=== PATIENT | male | born 1990 | race Caucasian/White ===

== ENCOUNTER 2020-06-11 09:37 | Emergency (ER) | payer OTHER, SELFPAY ==
--- NOTE | ~2020-06-11 | CT_ITS ---
EXAMINATION: CT ABDOMEN AND PELVIS WITH CONTRAST CLINICAL INFORMATION: Periumbilical pain COMPARISON: Previous CT of the abdomen and pelvis January 2013 TECHNIQUE: Multidetector volumetric images were obtained from the superior aspect of the liver through the pubic symphysis following administration 85 mL of Omnipaque 350 intravenous contrast. Sagittal and coronal reformatted images were obtained on the technologist's workstation. Oral contrast: Yes This CT examination was performed using dose optimization techniques as appropriate, variously including the following: *Automated exposure control *Adjustment of mA and/or kV according to patient size (this includes techniques or standardized protocols for targeted exams where dose is matched to indication/reason for exam; i.e. extremities or head) *Use of iterative reconstruction technique DLP: 997 mGy-cm FINDINGS: LUNG BASES: The visualized lung bases are unremarkable. LIVER, GALLBLADDER, AND BILIARY TREE: The liver is normal in size, shape, and attenuation. No focal hepatic lesion or biliary ductal dilatation is present. The gallbladder is unremarkable with no evidence of radiopaque gallstones, gallbladder wall thickening, or obvious pericholecystic inflammatory changes. PANCREAS: Unremarkable. SPLEEN: Unremarkable. ADRENAL GLANDS: Unremarkable. KIDNEYS AND URETERS: The kidneys are normal in size, shape, and attenuation. No hydronephrosis, hydroureter, or calculi seen. No perinephric stranding. BLADDER: Unremarkable. GASTROINTESTINAL TRACT: There is mild diverticulosis of the colon. No evidence of diverticulitis is seen. There is a linear high attenuation density in the sigmoid colon measuring approximately 1 x 10 mm axial image 73 series 3. This may represent something the patient has ingested or surgical clip. Clinical correlation is recommended. The small and large bowel are otherwise unremarkable. The appendix is unremarkable. The stomach is unremarkable. No ascites or free air is seen. ABDOMINAL WALL: There is a small umbilical hernia containing fat. LYMPH NODES: Normal. VASCULAR: Unremarkable. PELVIC VISCERA: Unremarkable. OSSEOUS STRUCTURES: Unremarkable. CT/CT abdomen pelvis w con IMPRESSION: Normal-appearing appendix. 1 x 10 mm high attenuation density in the sigmoid colon, question representing something the patient has recently ingested or surgical clip. Clinical correlation recommended. Small umbilical hernia containing fat.
[2020-06-11 11:15] VITALS: BP 159/94; PULSE 88; RESP 18; TEMP 36.5; O2SAT 97; BMI 35.2
[2020-06-11 11:50] LABS: MANUAL DIFF FLAG NO
[2020-06-11 11:53] LABS: Basophils Absolute Auto 0.1 X10*3/uL (0.0-0.2); Basophils Percent Auto 0.6 % (0-2); Eosinophils Absolute Auto 0.2 X10*3/uL (0.0-0.4); Eosinophils Percent Auto 1.9 % (0-4); Hemoglobin 17.6 g/dl (14.0-18.0); Imm Gran Abs Auto 0.04 X10*3/uL (0.00-0.03); Imm Gran Pct Auto 0.5 % (0.0-0.4); Lymphocytes Absolute Auto 2.8 X10*3/uL (1.2-4.9); Mean Corpuscular HGB Conc 34.5 g/dl (31.0-36.0); Mean Platelet Volume 10.4 fL (9.4-12.4); Monocytes Absolute Auto 0.7 X10*3/uL (0.1-1.2); Monocytes Percent Auto 7.7 % (2-11); Neutrophils Absolute Auto 4.7 X10*3/uL (2.0-8.3); Neutrophils Percent Auto 56.3 % (45-73); Platelet Count 254 X10*3/uL (160-400); Red Blood Count 5.86 X10*6/uL (4.60-5.80); Red Cell Distribution Width 12.9 % (11.0-16.0); White Blood Count 8.4 X10*3/uL (4.8-10.8)
[2020-06-11 11:57] LABS: Glucose Urine UA NEG (NEG); Leukocyte Esterase Urine NEG (NEG); Nitrite Urine NEG (NEG); Specific Gravity - Urine >= 1.030 (1.005-1.025); Urine Blood NEG (NEG); Urine Ketones NEG (NEG); Urine Protein NEG (NEG-TRACE)
[2020-06-11 11:58] LABS: Appearance Urine CLEAR; Color Urine YELLOW
[2020-06-11 12:20] LABS: Anion Gap 11 (12-20); Blood Urea Nitrogen 11 mg/dL (9-16); Calcium 9.1 mg/dL (8.4-10.2); Carbon Dioxide 24 mmol/L (22-29); Chloride 108 mmol/L (96-108); Creatinine Clr Calc Pharmacy 150.1; Estimated Glomerular Filt Rate > 60; Glucose Random 89 mg/dL (60-115); Sodium 139 mmol/L (135-145)
[2020-06-11 12:21] LABS: Alanine Aminotransferase 42 U/L (0-40); Albumin Level 4.6 g/dL (3.5-5.0); Alkaline Phosphatase 95 U/L (39-117); Aspartate Amino Transferase 20 U/L (5-37); Bilirubin Direct 0.2 mg/dL (0.0-0.5); Bilirubin Total 0.7 mg/dL (0.0-1.0); Lipase 32 U/L (8-78); Magnesium 2.2 mg/dL (1.6-2.6); Total Protein 6.8 g/dL (6.5-8.0)
--- NOTE | 2020-06-11 14:15 | PC.NURSE ---
patient a&ox3, c/o 10/07 umbilicus pain, vitals stable, iv inserted, awaiting ct scan, will continue to monitor
[2020-06-11 14:25] VITALS: BP 148/84; PULSE 88; RESP 18; TEMP 36.5; O2SAT 95
--- NOTE | 2020-06-11 14:26 | PC.NURSE ---
patient a&ox3, vss, 8 umbilicus pain, pt awaiting ed provider, will continue to monitor.
--- NOTE | 2020-06-11 14:30 | PC.NURSE ---
pt to ct scan
--- NOTE | 2020-06-11 14:36 | ED_ITS ---
HPI - Abdominal Pain General Chief Complaint: Abdominal Pain Stated Complaint: ABD PAIN Time Seen by Provider: 06/11/20 11:23 Source: patient Mode of arrival: ambulatory Limitations: no limitations History of Present Illness HPI narrative: 29-year-old male with history of asthma otherwise denies any past medical or surgical history he presents today with complaint of periumbilical abdominal pain states he has a hernia there and has been more painful over the past several days. Denies any nausea vomiting. No diarrhea. No recent illness. No rash to the abdomen. MD elicited complaint: abdominal pain Onset (ago): day(s) Pain Consistency: constant Location: periumbilical Severity: mild Quality: aching Exacerbating factors: other (States when he bears down or coughs pain become slightly more) Relieving factors: nothing Associated symptoms: denies other symptoms Related Data Previous Rx's Medication Instructions Recorded albuterol sulfate [ProAir HFA] 2 puff INHALATION Q4-6H PRN #8.5 g 06/11/20 Allergies Allergy/AdvReac Type Severity Reaction Status Date / Time doxycycline [DOXYCYCLINE] Allergy Unknown RASH, hives Unverified 11/15/19 16:37 penicillin G Allergy Unknown hives Verified 06/14/19 00:00 Penicillins [PENICILLINS] Allergy Unknown UNK Unverified 11/15/19 16:37 Review of Systems Review of Systems Constitutional: No Weight loss, No Fever, No Chills, No Night Sweats, No Fatigue, No Malaise ENT/Mouth: No Hearing loss, No Ear Pain, No Nasal Congestion, No Sinus Pain, No Hoarseness, No sore throat, No Rhinorrhea, No Swallowing Difficulty Eyes: No Eye Pain, No Swelling, No Redness, No Foreign Body, No Discharge, No Vision Changes Cardiovascular: No Chest Pain, No SOB, No Dyspnea on Exertion, No Orthopnea, No Edema, No Palpitations Respiratory: No Cough, No Sputum, No Wheezing, No Smoke Exposure, No Dyspnea Gastrointestinal: No Nausea, No Vomiting, No Diarrhea, No Constipation, + abdominal Pain, No Hematochezia, No Melena Genitourinary: No Dysuria, No Urinary Frequency, No Hematuria, No Urinary Incontinence, No Urgency, No Flank Pain, No Urinary Flow Changes, No Hesitancy Musculoskeletal: No joint pain, No Myalgias, No Joint Swelling Skin: No Skin Lesions, No rash Neuro: No Weakness, No Numbness, No Paresthesias, No Loss of Consciousness, No Dizziness, No Headache Psych: No Social Issues Heme/Lymph: No Bruising, No Bleeding,No Lymphadenopathy Endocrine: No Polyuria, No Polydipsia, No Temperature Intolerance Yes all other systems are reviewed and are negative Physical Exam Vital Signs: Vital Signs: Last Vital Signs Temp 97.7 F 06/11/20 14:25 Pulse 88 06/11/20 14:25 Resp 18 06/11/20 14:25 BP 148/84 H 06/11/20 14:25 Pulse Ox 95 06/11/20 14:25 Body Mass Index 35.2 Reviewed Const: General: cooperative and healthy appearing; No acute distress or intoxicated appearing Nutritional Appearance: average body habitus Orientation/consciousness: patient oriented x3 HENMT: Head: Yes normal to inspection Ears: hearing grossly normal bilaterally Eyes: General: appearance normal, both eyes and all related structures Visual Araiza: normal visual araiza by confrontation Neck: Neck: Yes normal visual inspection, No positive Brudzinski's sign, No positive Kernig's sign and No tender Thyroid: Thyroid normal Chest: Chest palpation & inspection: normal inspection of the chest Resp: Effort & Inspection: normal respiratory effort Auscultation: clear to auscultation bilaterally Cardio: Jugular venous distension: no JVD Rhythm: regular rhythm Heart sounds: S1 normal heart sound present and S2 normal heart sound present GI: Inspection: Yes normal to inspection Palpation (GI): Soft to palpation and Hernia present umbilical (Penis size periumbilical hernia that is fat containing and easy to reduce. He has diffuse tenderness over this area. No redness. No rebound.) Percussion: Yes normal to percussion Auscultation: normal bowel sounds : General: Yes no CVA tenderness Back/Spine/Pelvis: Back: no CVA tenderness Skin: General skin exam: no rashes or lesions noted Neuro: General: patient oriented x3 Extrem: General: Yes normal to inspection Course Reevaluation(s) Reevaluation #1: abdominal pelvis CT with IV contrast showing small periumbilical fat containing hernia easy to reduce on exam. Also incidental 1 x 10 mm highly attenuated density in sigmoid colon question represents something patient recently ingested or surgical clip aside from pilonidal cyst he has not had any abdominal surgeries or denies ingesting anything question food. He has no other complaints. He will follow-up with general surgery. Additionally he also states if I could send him a prescription of his inhaler for refill but he has no asthma related complaints at this time. Will go ahead and send a refill he will follow with General surgery and primary care. MDM - Abdominal Pain Lab Data Result diagrams: 06/11/20 11:44 06/11/20 11:44 Labs: Lab Results 06/11/20 06/11/20 06/11/20 Range/Units 11:44 11:44 11:44 WBC 8.4 (4.8-10.8) X10*3/uL RBC 5.86 H (4.60-5.80) X10*6/uL Hgb 17.6 (14.0-18.0) g/dl Hct 51.0 (42-52) % MCV 87.0 (80-98) fL MCH 30.0 (27.0-33.0) pg MCHC 34.5 (31.0-36.0) g/dl RDW 12.9 (11.0-16.0) % Plt Count 254 (160-400) X10*3/uL MPV 10.4 (9.4-12.4) fL Immature Gran % (Auto) 0.5 H (0.0-0.4) % Neut % (Auto) 56.3 (45-73) % Lymph % (Auto) 33.0 (20-40) % [place] % (Auto) 7.7 (2-11) % Eos % (Auto) 1.9 (0-4) % Baso % (Auto) 0.6 (0-2) % Lymph # (Auto) 2.8 (1.2-4.9) X10*3/uL [place] # (Auto) 0.7 (0.1-1.2) X10*3/uL Eos # (Auto) 0.2 (0.0-0.4) X10*3/uL Baso # (Auto) 0.1 (0.0-0.2) X10*3/uL Abs Immat Gran (auto) 0.04 H (0.00-0.03) X10*3/uL Absolute Neuts (auto) 4.7 (2.0-8.3) X10*3/uL Absolute Nucleated RBC 0.000 (0.0-0.012) X10*3/uL Nucleated RBC % (auto) 0.0 (0.0-0.2) /100WBC Hold Blue Top Sodium 139 (135-145) mmol/L Potassium 4.0 (3.3-5.1) mmol/L Chloride 108 (96-108) mmol/L Carbon Dioxide 24 (22-29) mmol/L Anion Gap 11 L (12-20) BUN 11 (9-16) mg/dL Creatinine 0.98 (0.5-1.4) mg/dL Estim Creat Clear Calc 150.1 Estimated GFR > 60 Random Glucose 89 (60-115) mg/dL Calcium 9.1 (8.4-10.2) mg/dL Magnesium (1.6-2.6) mg/dL Total Bilirubin (0.0-1.0) mg/dL Direct Bilirubin (0.0-0.5) mg/dL AST (5-37) U/L ALT (0-40) U/L Alkaline Phosphatase (39-117) U/L Total Protein (6.5-8.0) g/dL Albumin (3.5-5.0) g/dL Lipase (8-78) U/L Urine Color YELLOW Urine Appearance CLEAR Urine pH 6.0 (5.0-8.0) Ur Specific [place] >= 1.030 H (1.005-1.025) Urine Protein NEG (NEG-TRACE) MG/DL Urine Glucose (UA) NEG (NEG) MG/DL Urine Ketones NEG (NEG) MG/DL Urine Blood NEG (NEG) Urine Nitrite NEG (NEG) Ur Leukocyte Esterase NEG (NEG) 06/11/20 06/11/20 Range/Units 11:44 11:44 WBC (4.8-10.8) X10*3/uL RBC (4.60-5.80) X10*6/uL Hgb (14.0-18.0) g/dl Hct (42-52) % MCV (80-98) fL MCH (27.0-33.0) pg MCHC (31.0-36.0) g/dl RDW (11.0-16.0) % Plt Count (160-400) X10*3/uL MPV (9.4-12.4) fL Immature Gran % (Auto) (0.0-0.4) % Neut % (Auto) (45-73) % Lymph % (Auto) (20-40) % [place] % (Auto) (2-11) % Eos % (Auto) (0-4) % Baso % (Auto) (0-2) % Lymph # (Auto) (1.2-4.9) X10*3/uL [place] # (Auto) (0.1-1.2) X10*3/uL Eos # (Auto) (0.0-0.4) X10*3/uL Baso # (Auto) (0.0-0.2) X10*3/uL Abs Immat Gran (auto) (0.00-0.03) X10*3/uL Absolute Neuts (auto) (2.0-8.3) X10*3/uL Absolute Nucleated RBC (0.0-0.012) X10*3/uL Nucleated RBC % (auto) (0.0-0.2) /100WBC Hold Blue Top SEE NOTE Sodium (135-145) mmol/L Potassium (3.3-5.1) mmol/L Chloride (96-108) mmol/L Carbon Dioxide (22-29) mmol/L Anion Gap (12-20) BUN (9-16) mg/dL Creatinine (0.5-1.4) mg/dL Estim Creat Clear Calc Estimated GFR Random Glucose (60-115) mg/dL Calcium (8.4-10.2) mg/dL Magnesium 2.2 (1.6-2.6) mg/dL Total Bilirubin 0.7 (0.0-1.0) mg/dL Direct Bilirubin 0.2 (0.0-0.5) mg/dL AST 20 (5-37) U/L ALT 42 H (0-40) U/L Alkaline Phosphatase 95 (39-117) U/L Total Protein 6.8 (6.5-8.0) g/dL Albumin 4.6 (3.5-5.0) g/dL Lipase 32 (8-78) U/L Urine Color Urine Appearance Urine pH (5.0-8.0) Ur Specific [place] (1.005-1.025) Urine Protein (NEG-TRACE) MG/DL Urine Glucose (UA) (NEG) MG/DL Urine Ketones (NEG) MG/DL Urine Blood (NEG) Urine Nitrite (NEG) Ur Leukocyte Esterase (NEG) Imaging Data Abdominal/pelvis CT with IV contrast: Radiologist's impression: [address] [id number] Scan ReportSigned Patient: Víctor JusticeMR#: [id number]: [id number]:[id number]/Sex: 29 / MADM Date: 06/11/20Loc: EDAttlisa Dr: Ordering Physician: Josue Zuñiga NP Date of Service: 06/11/20 Procedure(s): CT abdomen pelvis w con Accession Number(s): [id number] cc: Josue Zuñiga NP~ EXAMINATION: CT ABDOMEN AND PELVIS WITH CONTRAST CLINICAL INFORMATION: Periumbilical pain COMPARISON: Previous CT of the abdomen and pelvis January 2013 TECHNIQUE: Multidetector volumetric images were obtained from the superior aspect of the liver through the pubic symphysis following administration 85 mL of Omnipaque 350 intravenous contrast. Sagittal and coronal reformatted images were obtained on the technologist's workstation. Oral contrast: Yes This CT examination was performed using dose optimization techniques as appropriate, variously including the following: *Automated exposure control *Adjustment of mA and/or kV according to patient size (this includes techniques or standardized protocols for targeted exams where dose is matched to indication/reason for exam; i.e. extremities or head) *Use of iterative reconstruction technique DLP: 997 mGy-cm FINDINGS: LUNG BASES: The visualized lung bases are unremarkable. LIVER, GALLBLADDER, AND BILIARY TREE: The liver is normal in size, shape, and attenuation. No focal hepatic lesion or biliary ductal dilatation is present. The gallbladder is unremarkable with no evidence of radiopaque gallstones, gallbladder wall thickening, or obvious pericholecystic inflammatory changes. PANCREAS: Unremarkable. SPLEEN: Unremarkable. ADRENAL GLANDS: Unremarkable. KIDNEYS AND URETERS: The kidneys are normal in size, shape, and attenuation. No hydronephrosis, hydroureter, or calculi seen. No perinephric stranding. BLADDER: Unremarkable. GASTROINTESTINAL TRACT: There is mild diverticulosis of the colon. No evidence of diverticulitis is seen. There is a linear high attenuation density in the sigmoid colon measuring approximately 1 x 10 mm axial image 73 series 3. This may represent something the patient has ingested or surgical clip. Clinical correlation is recommended. The small and large bowel are otherwise unremarkable. The appendix is unremarkable. The stomach is unremarkable. No ascites or free air is seen. ABDOMINAL WALL: There is a small umbilical hernia containing fat. LYMPH NODES: Normal. VASCULAR: Unremarkable. PELVIC VISCERA: Unremarkable. OSSEOUS STRUCTURES: Unremarkable. CT/CT abdomen pelvis w con IMPRESSION: Normal-appearing appendix. 1 x 10 mm high attenuation density in the sigmoid colon, question representing something the patient has recently ingested or surgical clip. Clinical correlation recommended. Small umbilical hernia containing fat. Dictated By:LIV ISABEL MDSigned By:<Electronically signed by LIV ISABEL MD in OV>06/11/20 1601 DD/ 1437TD/TT: Cyber Security Administrator: CHRIST Discharge Plan Discharge Clinical Impression: Periumbilical hernia, Medication refill Patient Disposition: Home, Self-Care Instructions: Umbilical Hernia (ED) Additional Instructions: Supportive care and discuss Balanced diet Try to manage more healthier weight No strenuous activity such as stooping over and lifting any objects Follow General surgery as discussed Return if any concerns or worsening symptoms Thank you Prescriptions: New albuterol sulfate [ProAir HFA] 90 mcg/actuation HFA aerosol inhaler 2 puff inhalation Q4-6H PRN (Reason: shortness of breath or wheezing) Qty: 8.5 RF: 0 Referrals: Geovani Kidd MD [Physician] - 2 weeks [facility] Past Medical History Medical History Asthma Social History Social History Alcohol intake: never Smoking Status: Current every day smoker Use of substances other than those prescribed or required for medical reasons: No Advance Directives: Yes Advance Directives Information Provided: Yes Advance Directives on File: No
[2020-06-11] MEDS: iohexoL 350 MG/ML 100 ML INFUS..BTL IV (15:32)
== END 2020-06-11 16:41 | disposition home or self-care (01) ==
PROVIDERS: Physician Assistant Medical; Emergency Provider Emergency Medicine Emergency Medical Services; PCP Internal Medicine
DX: K42.9 Umbilical hernia without obstruction or gangrene (principal); R10.33 Periumbilical pain; J45.909 Unspecified asthma, uncomplicated; Z76.0 Encounter for issue of repeat prescription
CPT/HCPCS: 36415; 74177; 80048; 80076; 81003; 83690; 83735; 85025; 99284; Q9967

== ENCOUNTER 2020-07-28 00:20 | Emergency (ER) | payer OTHER, SELFPAY ==
[2020-07-28 00:43] VITALS: BP 136/78; PULSE 117; RESP 20; TEMP 37.1; O2SAT 98; BMI 41.5
--- NOTE | 2020-07-28 00:52 | ED_ITS ---
HPI - Alcohol General Chief Complaint: Psychiatric Symptoms Stated Complaint: crisis Time Seen by Provider: 07/28/20 00:51 Source: patient, EMS and police Mode of arrival: EMS Limitations: no limitations History of Present Illness HPI narrative: 29-year-old male came in by ambulance and police for evaluation after alcohol intoxication. Patient was drinking alcohol last night and his brother was given him a ride ba ck home, brother passed by the patient's house did not want a stop and the patient wanted to get off to go home car was stopped and the patient jumped out of the car, patient stated that he jumped out of the car because he wanted to go home and sleep and get sober home and declined any suicidal ideation or attempt. Patient is not Section 12 as per police is not meeting criteria for Section 12 since never stated suicidal statement. Related Data Previous Rx's Medication Instructions Recorded albuterol sulfate [ProAir HFA] 2 puff INHALATION Q4-6H PRN #8.5 g 06/11/20 Allergies Allergy/AdvReac Type Severity Reaction Status Date / Time doxycycline [DOXYCYCLINE] Allergy Unknown RASH, hives Unverified 11/15/19 16:37 penicillin G Allergy Unknown hives Verified 06/14/19 00:00 Penicillins [PENICILLINS] Allergy Unknown UNK Unverified 11/15/19 16:37 Review of Systems Review of Systems: All other systems are reviewed and are negative Constitutional: Reports as per HPI and Reports no additional constitutional complaints Eyes: Reports as per HPI and Reports no additional eye complaints Reports system reviewed and no additional complaints, except as documented Cardiovascular: Reports as per HPI and Reports no additional cardiovascular complaints Respiratory: Reports as per HPI and Reports no additional respiratory complaints Gastrointestinal: Reports as per HPI and Reports no additional gastrointestinal complaints Genitourinary: Reports no additional female genitourinary complaints Musculoskeletal: Reports no additional musculoskeletal complaints Skin/Breast: Reports system reviewed and no additional complaints, except as docu Psychiatric: Reports no additional psychiatric complaints Endocrine: Reports no additional endocrine complaints Hematologic/Lymphatic: Reports no additional hematologic/lymphatic complaints Allergic/Immunologic: Reports no additional allergic/immunologic complaints Reports system reviewed and no additional complaints, except as documented and Reports Abnormal speech present PMFSH Past Medical History Medical History Asthma Social History Social History Alcohol intake: never Advance Directives: No Advance Directives Information Provided: No Physical Exam Vital Signs: Vital Signs: Last Vital Signs Temp 98.7 F 07/28/20 00:43 Pulse 117 H 07/28/20 00:43 Resp 20 07/28/20 00:43 BP 136/78 07/28/20 00:43 Pulse Ox 98 07/28/20 00:43 Body Mass Index 41.5 Vital signs have been reviewed as appeared to be correct. Blood pressure normal. Heart rate elevated. Respiration rate normal. Temperature normal. Oxygen saturation normal. Appearance: Alert. Oriented X3. No acute distress. Head: Normal external exam. Normocephalic. Atraumatic. No Ornelas signs noted. No raccoon eyes noted Eyes: PERRLA. EOMI. Conjunctiva and sclera normal. Eyelids normal. ENT: TM's Normal. Pharynx normal. Uvula midline. Moist mucous membranes. No trismus noted. No drooling noted. No muffled voice noted. Neck: Normal inspection. Neck supple. FROM. No adenopathy. Thyroid Normal. No meningeal signs. No neck mass noted. CVS: Normal heart rate and rhythm. Heart sound normal. No murmurs noted. Pulses normal throughout. Respiratory: No respiratory distress. Painless inspiration. Breath sounds normal. No wheezes/rales/rhonchi noted. Chest nontender. No accessory muscle usage noted or decreased air movement noted. Abdomen: Soft and nontender. Bowel sounds normal in all 4 quadrants. No distention noted. No organomegaly noted. No visible injury noted. Back: No CVA tenderness. Full range of motion noted. Skin: Skin warm and dry. Normal skin color. Normal skin turgor. No rashes/lesions/lacerations noted. Extremities: Bilateral knee superficial contusions and abrasions. Neuro: Oriented X 3. No motor deficit. No sensory deficit. Reflexes normal. Course Course Course Narrative: Assessment and plan. 29-year-old male in came in with alcohol intoxication last night, patient wanted to go home yesterday, never made any suicidal or homicidal statement. Patient now is sober, awake, alert, able to ambulate in the emergency room with steady gait, declined any SI or HI or visual hallucination. Patient is requesting to go to sleep. MDM - Alcohol Lab Data Labs: Lab Results 07/28/20 Range/Units 00:59 COVID-19 (RHETT) Negative (Negative) COVID-19 Clin Com See Note Discharge Plan Discharge Clinical Impression: Acute anxiety Alcohol intoxication Qualifiers: Complication of substance-induced condition: uncomplicated Qualified Code(s): F10.920 - Alcohol use, unspecified with intoxication, uncomplicated Patient Disposition: Home, Self-Care Instructions: Abuse of Alcohol (ED) Prescriptions: No Action albuterol sulfate [ProAir HFA] 90 mcg/actuation HFA aerosol inhaler 2 puff inhalation Q4-6H PRN (Reason: shortness of breath or wheezing) Qty: 8.5 RF: 0 Referrals: Elisa Teague MD [Primary Care Provider] - 2 days
[2020-07-28 01:24] LABS: COVID-19 Test Negative (Negative); IDNOW Serial# 9DD0AD1C
== END 2020-07-28 10:11 | disposition home or self-care (01) ==
PROVIDERS: Emergency Provider Emergency Medicine; PCP Internal Medicine
DX: F41.9 Anxiety disorder, unspecified (principal); F10.120 Alcohol abuse with intoxication, uncomplicated; S80.02XA Contusion of left knee, initial encounter; S80.01XA Contusion of right knee, initial encounter; W17.89XA Other fall from one level to another, initial encounter; Z20.822 Contact with and (suspected) exposure to COVID-19; Y93.89 Activity, other specified; Y92.414 Local residential or business street as the place of occurrence of the external cause; Y99.9 Unspecified external cause status
CPT/HCPCS: 36415; 87635; 99283

== ENCOUNTER 2020-08-31 09:39 | Emergency (ER) | payer OTHER, SELFPAY ==
[2020-08-31 09:59] VITALS: BP 179/98; PULSE 105; RESP 18; TEMP 36.6; O2SAT 100; BMI 38.0
[2020-08-31] MEDS: Lidocaine HCl 1 % MPF 5 ML VIAL SUBCUT ×2 (11:30)
--- NOTE | 2020-09-20 19:50 | ED.SKABFB ---
HPI - Skin/Abscess/Foreign Bdy General Chief complaint: Skin/Abscess/Foreign Body Stated complaint: cyst on tailbone exploded Time Seen by Provider: 08/31/20 10:56 History of Present Illness HPI narrative: Patient with history of surgical treatment for pilonidal cyst returns with recurrent pilonidal abscess with pain and swelling in the area, no fever no chills Related Data Previous Rx's Medication Instructions Recorded ibuprofen 600 mg PO Q6H PRN #20 tab 08/31/20 oxycodone-acetaminophen [Percocet] 1 tab PO Q4-6H PRN #10 tab 08/31/20 oxycodone-acetaminophen [Percocet] 1 tab PO Q4-6H PRN #10 tab 08/31/20 sulfamethoxazole-trimethoprim 1 tab PO Q12H 7 Days #14 tab 08/31/20 [Bactrim DS] albuterol sulfate 90 mcg/actuation 2 puff INHALATION Q4-6H PRN #8.5 g 09/09/20 aerosol inhaler Allergies Allergy/AdvReac Type Severity Reaction Status Date / Time doxycycline [DOXYCYCLINE] Allergy Unknown RASH, hives Verified 09/08/20 16:16 penicillin G Allergy Unknown hives Verified 09/08/20 16:16 Penicillins [PENICILLINS] Allergy Unknown UNK Verified 09/08/20 16:16 Review of Systems Review of Systems: Positive for pilonidal area swelling and pain Negative no fever no chills no dizziness no weakness no numbness weakness or tingling no dysuria no nausea or vomiting no abdominal pain Yes all other systems are reviewed and are negative PMFSH Past Medical History Source: nursing notes reviewed Medical History (Updated 09/08/20 @ 16:27 by Geovani Kidd MD) Anxiety Asthma Morbid obesity Sacrococcygeal pilonidal cyst Surgical History History of foot surgery Social History Social History Alcohol intake: current Patient Tobacco Use Status: Current everyday Tobacco user Physical Exam Vital Signs: Vital Signs: Last Vital Signs Temp 98 F 08/31/20 09:59 Pulse 105 H 08/31/20 09:59 Resp 18 08/31/20 09:59 BP 179/98 H 08/31/20 09:59 Pulse Ox 100 08/31/20 09:59 Body Mass Index 38.0 General appearance no acute distress Head is normocephalic atraumatic Neck is supple Respiratory no distress Abdomen soft nontender The back the in the pilonidal area there is redness swelling fluctuance and some pus discharge, no significant surrounding erythema, full range of motion Extremities full range of motion x4 Neuro no focal motor or sensory deficit Course Course Course Narrative: Pilonidal abscess procedure note The area is cleansed with Betadine Anesthesia is 10 cc of 1% lidocaine 1.5 cm incision is made Copious pus discharged and loculations are broken up with forceps and packing was placed Dressing was placed Discharge Plan Discharge Clinical Impression: Pilonidal abscess Patient Disposition: Home, Self-Care Additional Instructions: return to ER or the office of Dr. Kidd is in 2 days for packing removal and recheck Be sure to follow with Dr. Kidd is next week even if it is not on Tuesday for the packing removed in as he will decide if any further procedure is needed Return any time for worse pain and swelling, fever, any worse condition or any concerns Prescriptions: New sulfamethoxazole-trimethoprim [Bactrim DS] 800-160 mg tablet 1 tab PO Q12H 7 Days Qty: 14 RF: 0 ibuprofen 600 mg tablet 600 mg PO Q6H PRN (Reason: pain) Qty: 20 RF: 0 oxycodone-acetaminophen [Percocet] 5-325 mg tablet 1 tab PO Q4-6H PRN (Reason: pain) Qty: 10 RF: 0 oxycodone-acetaminophen [Percocet] 5-325 mg tablet 1 tab PO Q4-6H PRN (Reason: pain) Qty: 10 RF: 0 No Action albuterol sulfate [ProAir HFA] 90 mcg/actuation HFA aerosol inhaler 2 puff inhalation Q4-6H PRN (Reason: shortness of breath or wheezing) Qty: 8.5 RF: 0 Referrals: Geovani Kidd MD [Physician] - 2 days ( pilonidal abscess recurrence after surgical procedure in 2019) Stand Alone Forms: Work/School Release Interventions: ED Discharge Assessment Last Done: 08/31/20 12:35 Discharge Date/Time: 08/31/20 12:35
== END 2020-08-31 12:35 | disposition home or self-care (01) ==
PROVIDERS: Emergency Provider Emergency Medicine; PCP Internal Medicine
DX: L05.01 Pilonidal cyst with abscess (principal); F17.210 Nicotine dependence, cigarettes, uncomplicated
CPT/HCPCS: 10080; 87071; 87205; 99284

== ENCOUNTER → 2020-09-08 16:09 | Outpatient (BNVA) | payer OTHER, SELFPAY | PROVIDERS: PCP Internal Medicine; Referring Provider Internal Medicine; Visit Provider Surgery | DX: L05.91 Pilonidal cyst without abscess (principal); E66.01 Morbid (severe) obesity due to excess calories; Z68.37 Body mass index [BMI] 37.0-37.9, adult; Z88.1 Allergy status to other antibiotic agents; Z88.0 Allergy status to penicillin | CPT/HCPCS: 99212 ==

== ENCOUNTER → 2020-09-29 15:58 | Outpatient (BNVA) | payer OTHER, SELFPAY | PROVIDERS: PCP Internal Medicine; Referring Provider Internal Medicine; Visit Provider Surgery | DX: L05.91 Pilonidal cyst without abscess (principal); D17.0 Benign lipomatous neoplasm of skin and subcutaneous tissue of head, face and neck; E66.01 Morbid (severe) obesity due to excess calories; Z68.37 Body mass index [BMI] 37.0-37.9, adult; Z88.1 Allergy status to other antibiotic agents; Z88.0 Allergy status to penicillin; Z79.899 Other long term (current) drug therapy | CPT/HCPCS: 99212 ==

== ENCOUNTER 2020-10-16 13:57 | Outpatient (REF) | payer OTHER, SELFPAY ==
[2020-10-16 14:07] VITALS: BP 148/91; PULSE 88; RESP 20; TEMP 36.6; O2SAT 96
[2020-10-16 14:08] VITALS: BMI 37.0
--- NOTE | 2020-10-16 14:37 | W.PM.OPN ---
Operative Note Operative Note Date of Service: 10/16/20 Narrative: Preop Diagnosis: Lipoma of the forehead Postop diagnosis: Lipoma of the forehead Procedure: Excision of lipoma from the forehead under local anesthesia Surgeon: Geovani Kidd MD The patient is a 29-year-old male with a well-defined lipomatous mass on the forehead measuring about 1 cm in size. He understood the technique of excision under local anesthesia. He was aware of the risks, benefits, and alternatives Was brought to the minor procedure room and placed supine. The area of the lipomas prepped and draped. Lidocaine 1% was used for local anesthesia. An incision was made on the skin overlying the lipoma using a blade 15. Following the lines of the skin. This was carried down through the full-thickness of the skin and subcutaneous fat. Then sharply dissected the rest of the subcutaneous fat with fine scissors until I was able to visualize a lipoma. This lipoma was sharply dissected off of the rest of subcutaneous layer until this was delivered and sent as specimen. I irrigated the area of excision. I closed the incision full-thickness nylon 5 0 interrupted sutures. Dressings were applied. The patient tolerated procedure well. There were no complication noted. He was given wound care instructions and will be seen in the office for follow-up visit.
--- NOTE | 2020-10-16 14:39 | P.BOP_ITS ---
Brief Operative Note Date of Service: 10/16/20 Pre-op diagnosis: Lipoma forehead Post-op diagnosis: same Procedure: Excision of lipoma, forehead under local anesthesia Surgeon: Geovani Kidd MD Anesthesia: local Was an Estate [employer] Tax Principal used for this Procedure?: No Estimated blood loss (mL): 20 Pathology: other (Lipoma) Condition: stable Disposition: other (Home)
== END 2020-10-16 13:58 | disposition home or self-care (01) ==
LOC: HO.MS 13:57
PROVIDERS: PCP Internal Medicine; Visit Provider Surgery
PROC: (CPT 11441; principal; 2020-10-16 13:50)
DX: D17.0 Benign lipomatous neoplasm of skin and subcutaneous tissue of head, face and neck (principal)
CPT/HCPCS: 11441; 88304; 88305

== ENCOUNTER → 2020-10-27 16:09 | Outpatient (BNVA) | payer OTHER, SELFPAY | PROVIDERS: PCP Internal Medicine; Visit Provider Surgery | DX: D17.0 Benign lipomatous neoplasm of skin and subcutaneous tissue of head, face and neck (principal); E66.01 Morbid (severe) obesity due to excess calories; Z68.35 Body mass index [BMI] 35.0-35.9, adult; Z88.1 Allergy status to other antibiotic agents; Z88.0 Allergy status to penicillin | CPT/HCPCS: 99212 ==

== ENCOUNTER 2022-04-13 16:37 | Emergency (ER) | payer OTHER, SELFPAY ==
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
[2022-04-13 17:06] VITALS: BP 160/102; PULSE 91; RESP 18; TEMP 37.2; O2SAT 97; BMI 34.5
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
== END 2022-04-13 21:34 | disposition home or self-care (01) ==
PROVIDERS: Emergency Provider Student in an Organized Health Care Education/Training Program; PCP Internal Medicine
DX: S46.912A Strain of unspecified muscle, fascia and tendon at shoulder and upper arm level, left arm, initial encounter (principal); M25.512 Pain in left shoulder; V43.52XA Car driver injured in collision with other type car in traffic accident, initial encounter; Y93.9 Activity, unspecified; Y92.410 Unspecified street and highway as the place of occurrence of the external cause; Y99.9 Unspecified external cause status; F17.210 Nicotine dependence, cigarettes, uncomplicated; Z71.6 Tobacco abuse counseling
CPT/HCPCS: 73030; 99282; 99283

== ENCOUNTER 2022-09-20 08:56 | Outpatient (AMB) | payer OTHER, SELFPAY ==
[2022-09-20 08:59] VITALS: BP 132/80; PULSE 83; O2SAT 98; BMI 35.3
--- NOTE | 2022-09-20 08:59 | MHC.PC.OV ---
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 Accompanied by: Self / Same As Patient Allergies doxycycline [DOXYCYCLINE] Allergy (Unknown, Verified 09/20/22 09:05) RASH, hives penicillin G Allergy (Unknown, Verified 09/20/22 09:05) hives Penicillins [PENICILLINS] Allergy (Unknown, Verified 09/20/22 09:05) UNK Medication List - Last Reconciled 09/20/22 by Elisa Pedraza MD lisinopril 10 mg PO DAILY 90 days Ventolin HFA 90 mcg/actuation (albuterol sulfate) 2 puffs inhalation Q6H PRN 30 days NS Tobacco use date assessed: 05/03/22 Dental Screening Dental Screen Date: 09/20/22 Did you have a dental visit in the last 12 months?: Yes Did you have a dental problem in the last 6 months where you did not have access to dental care?: No Was dental information given to patient?: Patient has dentist HPI HPI Comments History of Present Illness Details This is a 31-year-old male that comes for his physical exam. He denies any chest pain. Complains and dyspnea on exertion. Has umbilical hernia and will be referred to General surgery. Also has a mass in left outer ear bothers him sometimes most likely due to a lipoma. Will be referred to surgery as well. [facility] Medical History (Updated 09/20/22 @ 09:19 by Elisa Pedraza MD) Anxiety Asthma Lipoma of forehead Sacrococcygeal pilonidal cyst Surgical History History of foot surgery Family History Mother No problems noted. Father COPD (chronic obstructive pulmonary disease) Social History Housing: Condominium Alcohol intake: current Alcohol intake frequency: a few times a month Alcohol type: beer and hard liquor Patient Tobacco Use Status: Current everyday Tobacco user Tobacco use type: Cigarette Cigarettes Per Day: 10 e-Cigarette/Vaping Use: Currently Using Second Hand Smoke Exposure: No service: No Current occupational status: employed Current occupational exposures/hazards: No Cognitive needs: No Hearing needs: No Vision needs: Yes Questionnaire PHQ-9 Over the last 2 weeks, how often have you been bothered by any of the following problems? 1. Little interest or pleasure in doing things: not at all 2. Feeling down, depressed, or hopeless: not at all 3. Trouble falling or staying asleep, or sleeping too much: not at all 4. Feeling tired or having little energy: not at all 5. Poor appetite or overeating: not at all 6. Feeling bad about yourself - or that you are a failure or have let yourself or your family down: not at all 7. Trouble concentrating on things, such as reading the newspaper or watching television: not at all 8. Moving or speaking so slowly that other people could have noticed. Or the opposite - being so fidgety or restless that you have been moving around a lot more than usual: not at all 9. Thoughts that you would be better off or of hurting yourself in some way: not at all Total score: 0 Depression Screening Interpretation: Negative 46415 - PHQ-9 Billing: Yes Source: Developed by Drs. Armaan Ortiz, Karo Blackman, Ehsan Thakkar and colleagues, with an educational rach from [employer]. Thrive Questionnaire Date Thrive assessed: 05/03/22 AUDIT C Alcohol Use Questionnaire (AUDIT-C) 1. How often do you have a drink containing alcohol?: Monthly or less 2. How many drinks containing alcohol do you have on a typical day when you are drinking?: 1 or 2 3. How often do you have six or more drinks on one occasion?: Never Total Score: 1 Score Reviewed/Action Taken: Yes JANINA-7 AMB Questionnaire JANINA-7 Date JANINA - 7 assessed: 09/20/22 Feeling nervous, anxious, or on edge: 1 = Several days Not being able to stop or control worryin = Not at all Worrying too much about different things: 0 = Not at all Trouble relaxin = Not at all Being so restless that it is hard to sit still: 0 = Not at all Becoming easily annoyed or irritable: 0 = Not at all Feeling afraid as if something awful might happen: 0 = Not at all Total JANINA-7 score (0-4 normal; 5-9 mild; 10-14 moderate; 15-21 severe): 1 Source: Developed by Drs. Armaan Ortiz, Karo Blackman, Ehsan Thakkar and colleagues, with an educational rach from [employer]. JANINA-7 Assessment Billing JANINA-7 Assessment Tool: JANINA-7 Assessment 69082 Review of Systems Const All systems reviewed & are unremarkable except as noted in HPI and below Eyes Reports no additional complaints, Denies change in vision and Denies other visual disturbances Card Denies chest pain at rest, Denies chest pain with activity, Denies edema, Denies irregular heart rhythm, Denies claudication, Denies dyspnea, Reports dyspnea on exertion, Denies orthopnea, Denies paroxysmal nocturnal dyspnea and Denies slow heart rate Resp Denies cough, Denies dyspnea and Reports dyspnea on exertion GI Denies abdominal pain, Denies change in bowel habits, Denies excessive flatus, Denies nausea and Denies vomiting Denies urinary hesitancy, Denies urinary incontinence and Denies urinary urgency Musc Denies abnormal gait, Denies atrophy, Denies deformity and Denies limited range of motion Skin/Breast Denies bleeding lesions, Denies changing lesions and Denies rash Neuro Denies abnormal gait and Denies lack of coordination Physical exam (Primary Care) Vital Signs: Last Vital Signs Pulse 83 09/20/22 08:59 BP 132/80 09/20/22 08:59 Pulse Ox 98 09/20/22 08:59 Oxygen Delivery Method Room Air 09/20/22 08:59 BMI result Body Mass Index 35.3 Tobacco/Smoking Status: Tobacco use Status Tobacco use date assessed 05/03/22 09/20/22 09:03 Patient Tobacco Use Status Current everyday Tobacco 09/20/22 09:03 Tobacco use type Cigarette 09/20/22 09:03 e-Cigarette/Vaping Use Currently Using 09/20/22 09:03 PHQ-9: PHQ-9 Score PHQ-9: Total score 0 09/20/22 09:03 Depression Screening Interpretation: Negative Thrive Assessment: Date of Thrive Assessment Date Thrive assessed 05/03/22 09/20/22 09:03 Const Orientation/consciousness: patient oriented x3 HENMT Head: Yes normal to inspection, Yes normocephalic and Yes atraumatic Ears: external ears normal Eyes General: appearance normal, both eyes and all related structures Eyelids: Yes eyelids normal Conjunctivae: conjunctivae normal Neck Neck: Yes normal visual inspection and Yes supple Resp Effort & Inspection: normal respiratory effort Auscultation: clear to auscultation bilaterally Cardio Jugular venous distension: no JVD Rate: regular rate Rhythm: regular rhythm Heart sounds: S1 normal heart sound present and S2 normal heart sound present GI Inspection: Yes normal to inspection Palpation (GI): Soft to palpation, nontender and Hernia present umbilical Auscultation: normal bowel sounds Skin Other: mass in left outer ear Neuro General: patient oriented x3 and no focal motor deficits Extrem General: Yes full ROM Psych Appearance: grossly normal Assessment and Plan Assessment & Plan (1) Physical exam: Code(s): Z00.00 - Encounter for general adult medical examination without abnormal findings Plan: Repeat in a year Orders: Orders US abdomen comp w elastography Today K42.9 - Umbilical hernia without obstruction or gangrene Comprehensive [place]. Panel Fast Today I10 - Essential (primary) hypertension Lipid Panel Today I10 - Essential (primary) hypertension Complete Blood Count Auto Diff Today J45.30 - Mild persistent asthma, uncomplicated Referrals General Surgery Referral D17.9 - Benign lipomatous neoplasm, unspecified, K42.9 - Umbilical hernia without obstruction or gangrene Medications: Refilled Ventolin HFA 90 mcg/actuation (albuterol sulfate) 2 puffs inhalation Q6H 30 days PRN 8 grams 2RF shortness of breath or wheezing NS J45.30 - Mild persistent asthma, uncomplicated Coding Level of Care Code Est Pt Prev Care 18-39y([id number]) Diagnoses Physical exam Z00.00 Additional Codes JANINA-7 Assessment Billing - JANINA-7 Assessment Tool: JANINA-7 Assessment [id number] ([id number]) Time Spent (min) 31
== END 2022-09-20 09:17 | disposition home or self-care (01) ==
PROVIDERS: Visit Provider Internal Medicine
DX: Z00.00 Encounter for general adult medical examination without abnormal findings (principal)
CPT/HCPCS: 99395

== ENCOUNTER 2022-10-06 08:21 | Outpatient (AMB) | payer OTHER, SELFPAY ==
--- NOTE | 2022-10-06 08:29 | A.OFFVIS_ITS ---
Intake Vital Signs 10/06/22 08:33 Height 6 ft Weight 259 lb BMI 35.1 BP 149/90 H Blood Pressure Location Rt brachial Position Sitting Pulse 79 Intake Visit Reasons: umbilical hernia/ ?lipoma Intake Note: This patient presents for an assessment for an umbilical hernia and question lipoma on ear. Patient c/o; reports umbilical bulge, denies problems with bowel movements or changes in bowel habits, reports cyst vs lipoma on ear, reports cyst changes color and at times can be purplish, reports pain and discomfort. 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 He has noticed this for about a year now. He says that this often seems to be bigger specially with exertion and coughing. He says that this has been getting more comfortable now and seems to be a little bigger than before. He denies GI complaints. [facility] Medical History Anxiety Asthma Lipoma of forehead Sacrococcygeal pilonidal cyst Umbilical hernia Surgical History History of foot surgery Family History Mother No problems noted. Father COPD (chronic obstructive pulmonary disease) Social History Housing: Condominium Alcohol intake: current Alcohol intake frequency: a few times a month Alcohol type: beer and hard liquor Patient Tobacco Use Status: Current everyday Tobacco user Tobacco use type: Cigarette Cigarettes Per Day: 10 e-Cigarette/Vaping Use: Currently Using Second Hand Smoke Exposure: No service: No Current occupational status: employed Current occupational exposures/hazards: No Cognitive needs: No Hearing needs: No Vision needs: Yes Review of Systems Const Denies chills and Denies fever(s) Card Denies chest pain, Denies dyspnea and Denies dyspnea on exertion Resp Denies cough, Denies dyspnea and Denies dyspnea on exertion GI Denies hematochezia and Denies change in bowel habits Denies hematuria and Denies difficulty urinating Musc Denies back pain and Denies limited range of motion Neuro Denies focal weakness and Denies convulsions Psych Denies depression and Denies mood swings Physical Exam Const General: comfortable and no acute distress Orientation/consciousness: patient oriented x3 Neck Neck: Yes no lymphadenopathy Resp Auscultation: clear to auscultation bilaterally Cardio Rhythm: regular rhythm GI Other: Umbilical hernia, about 1.5 cm defect, reducible, no skin changes Palpation (GI): Soft to palpation, nontender and no guarding Neuro General: patient oriented x3 Assessment & Plan Assessment & Plan (1) Umbilical hernia: Code(s): K42.9 - Umbilical hernia without obstruction or gangrene Plan: He has an umbilical hernia with about a 1.5 cm defect. This is reducible. I explained the technique of repair of this umbilical hernia with possible mesh placement. I reviewed the risks including but not limited bleeding, infections, postop pain, as well as the benefits and alternatives. I explained to him what to expect postoperatively. He says he understands and wants to proceed with repair. Coding Level of Care Code Est Pt Level 3 (08487) Diagnoses Umbilical hernia K42.9
[2022-10-06 08:33] VITALS: BP 149/90; PULSE 79; BMI 35.1
== END 2022-10-06 08:39 | disposition home or self-care (01) ==
PROVIDERS: PCP Internal Medicine; Visit Provider Surgery
DX: K42.9 Umbilical hernia without obstruction or gangrene (principal)
CPT/HCPCS: 99213

== ENCOUNTER → 2022-10-06 08:21 | Outpatient (BNVA) | payer OTHER, SELFPAY | PROVIDERS: PCP Internal Medicine; Visit Provider Surgery | DX: K42.9 Umbilical hernia without obstruction or gangrene (principal) | CPT/HCPCS: 99212 ==

== ENCOUNTER → 2024-06-05 09:08 | Outpatient (BNVA) | payer MEDICAID, SELFPAY | PROVIDERS: PCP Internal Medicine; Visit Provider Internal Medicine | DX: Z13.89 Encounter for screening for other disorder (principal) ==

== ENCOUNTER 2024-11-27 12:06 | Emergency (ER) | payer SELFPAY ==
--- NOTE | 2024-11-27 12:09 | ED_ITS ---
HPI - Skin/Abscess/Foreign Bdy General Chief complaint: General Medical Stated complaint: Rash on hands/arms Time Seen by Provider: 11/27/24 12:18 Source: patient and RN notes reviewed Mode of arrival: ambulatory Limitations: no limitations History of Present Illness ED Provider: Gabi Longoria PA-C HPI narrative: This is a 33-year-old male, with a past medical history of asthma, who presents emergency department with concerns of rash to upper bilateral extremities as well as abdomen for the last 2 weeks. Patient states that he works for a [employer] and had to respond to an accident 2 weeks ago that was in the [employer]. Patient is unsure if he was exposed to any poison ricardo or poison oak. He states that he has developed a burning itchy rash to his bilateral upper extremities as well as his abdomen. He states that he otherwise feels well, no fevers, chills, chest pain, shortness of breath, abdominal pain, nausea, vomiting or diarrhea. He has been using [id number] topical poison ricardo medication which has not provided him with any relief. No other complaints or concerns at this time. MD complaint: rash Onset (ago): week(s) Relieving factors: none Exacerbating factors: none Context: none Associated symptoms: denies other symptoms Treatments prior to arrival: none Related Data Previous Rx's ?Medication ?Instructions ?Recorded lisinopril 10 mg tablet 10 mg PO DAILY 90 days #90 t abs 05/03/22 Ventolin HFA 90 mcg/actuation 2 puff inhalation Q6H WA N 12/25/22 aerosol inhaler (albuterol sulfate) shortness of breat h or wheezing 30 days #8 grams albuterol sulfate 90 mcg/actuation 2 puff inhalation Q 6H PRN 11/27/24 aerosol inhaler (Ventolin HFA) shortness of breath or wheezing #6.7 grams prednisone 20 mg tablet 40 mg (2 x 20 mg) PO DAILY 5 days 11/27/24 #10 tabs Allergies Allergy/AdvReac Type Severity Reaction Status Date / Time doxycycline (DOXYCYCLINE) Allergy Intermediate RASH, hives Verified 11/27/24 12:11 Penicillins (PENICILLINS) Allergy Intermediate Hives Verified 11/27/24 12:11 Review of Systems Review of Systems: Constitutional : No Fever, No Chills ENT/Mouth : No sore throat, No Rhinorrhea Eyes: No Eye Pain, No Swelling, No Redness Cardiovascular : No Chest Pain, No SOB Respiratory : No Cough, No Sputum Gastrointestinal : No Nausea, No Vomiting, No Diarrhea, No abdominal Pain Genitourinary : No Dysuria, No Hematuria Musculoskeletal : No joint pain, No Myalgias, No Joint Swelling Skin : No Skin Lesions, positive skin rash Neuro : No Weakness, No Numbness, No Headache All other systems reviewed and are negative Yes all other systems are reviewed and are negative Constitutional: Constitutional: Reports as per [facility] Past Medical History Medical History (Updated 11/28/24 @ 00:01 by Leandro Worley) HTN (hypertension) Umbilical hernia Lipoma of forehead Sacrococcygeal pilonidal cyst Anxiety Asthma Surgical History (Updated 12/31/22 @ 09:05 by Jenn Rutherford RN) Hx of excision of mass History of foot surgery Family History Family History Mother No problems noted. Father COPD (chronic obstructive pulmonary disease) Social History Social History Housing: Condominium Alcohol intake: current Alcohol intake frequency: a few times a month Alcohol type: beer and hard liquor Patient Tobacco Use Status: Current everyday Tobacco user Tobacco use type: Cigarette Cigarettes Per Day: 10 e-Cigarette/Vaping Use: Currently Using Second Hand Smoke Exposure: No Advance Directives: No Advance Directives Information Provided: Yes service: No Current occupational status: employed Current occupational exposures/hazards: No Cognitive needs: No Hearing needs: No Vision needs: Yes Physical Exam Exam: Exam: General: Awake, alert, and oriented X3. No acute distress. HEENT: Normal inspection CVS: Normal heart rate and rhythm. Pulses normal. Respiratory: No respiratory distress Skin: Maculopapular rash noted to bilateral upper extremities, scattered, crusting noted. Also to lower abdomen, no surrounding erythema or warmth. No drainage. Extremities: Normal to inspection Neuro: Oriented X 3. No motor deficit. No sensory deficit. Vital Signs: Vital Signs: Last Vital Signs Temp 98.2 F 11/27/24 12:31 Pulse 98 11/27/24 12:31 Resp 18 11/27/24 12:31 BP 141/83 H 11/27/24 12:31 Pulse Ox 94 11/27/24 12:31 O2 Del Method Room Air 11/27/24 12:31 BMI result Body Mass Index 43.0 Medical Decision Making Medical Decision Making [facility] Narrative: This is a 33-year-old male who presents emergency department with concerns of rash on bilateral hands. Patient had recent environmental exposure likely from poison ricardo. On arrival, patient mildly hypertensive at 141/83. Patient with maculopapular rash noted to upper extremities consistent with poison ricardo or contact dermatitis. Will treat with course of prednisone. No facial involvement, no scrotal involvement. Discussed strict return precautions. He has no shortness for breath or difficulty swallowing. Patient understands and agrees with plan. Patient stable for discharge. Differential Diagnosis Differential Diagnoses: The differential diagnosis associated with the presentation includes Contact dermatitis, folliculitis, cellulitis, atopic dermatitis Discharge Plan Discharge Clinical Impression: Contact dermatitis, Medication refill Patient Disposition: Home, Self-Care Instructions: Contact Dermatitis (ED) Additional Instructions: You were seen in the emergency department due to a rash. It is unclear what is causing you to have this rash however this is likely something that you are allergic to. Please take prescribed prednisone as directed, finish the entire course. 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 I am also refilling your inhaler. If any new or worsening symptoms occur including but not limited to severe shortness of breath, fevers, chills, body acheschest pain, worsening rash, increased redness, swelling, drainage from the rash, please return for re- evaluation. Prescriptions: New prednisone 20 mg tablet 40 mg PO DAILY 5 Days Qty: 10 0RF albuterol sulfate [Ventolin HFA] 90 mcg/actuation HFA aerosol inhaler 2 puff inhalation Q6H PRN (Reason: shortness of breath or wheezing) Qty: 6.7 0RF No Action albuterol sulfate [Ventolin HFA] 90 mcg/actuation HFA aerosol inhaler 2 puff inhalation Q6H PRN (Reason: shortness of breath or wheezing) 30 Days Qty: 8 2RF lisinopril 10 mg tablet 10 mg PO DAILY 90 Days Qty: 90 1RF Interventions: ED Discharge Assessment Last Done: 11/27/24 12:31 Discharge Date/Time: 11/27/24 12:31 Print Language: Russian
[2024-11-27 12:10] VITALS: BP 141/83; PULSE 98; RESP 18; TEMP 36.8; O2SAT 94; BMI 43.0
[2024-11-27 12:31] VITALS: BP 141/83; PULSE 98; RESP 18; TEMP 36.8; O2SAT 94
== END 2024-11-27 12:31 | disposition home or self-care (01) ==
PROVIDERS: Emergency Provider Emergency Medicine; PCP Internal Medicine
DX: L25.9 Unspecified contact dermatitis, unspecified cause (principal); J45.909 Unspecified asthma, uncomplicated; Z79.51 Long term (current) use of inhaled steroids
CPT/HCPCS: 99282; 99283

== ENCOUNTER 2025-01-06 01:46 | Emergency (ER) | payer SELFPAY ==
--- NOTE | ~2025-01-06 | CT_ITS ---
CLINICAL HISTORY: Left Rib Pain; Tenderness CT chest without contrast Comparison: None provided Findings: The heart is normal size. The visualized thyroid and mediastinum are unremarkable. Mild thickening of the lower esophagus. No rib fracture or alternate acute osseous abnormality. The visualized upper abdomen is unremarkable. Impression: No definite acute process. Mild thickening of the esophagus is nonspecific but can be seen with reflux esophagitis. This document has been electronically signed by: Sherman Shah MD on 01/06/2025 06:28:52
--- NOTE | ~2025-01-06 | XR_ITS ---
CLINICAL HISTORY: cough 1 view chest x-ray Comparison: None provided Findings: The lungs are clear. Normal size heart. No acute fracture. IMPRESSION: 1. No acute findings. This document has been electronically signed by: Sherman Shah MD on 01/06/2025 05:28:13
--- NOTE | ~2025-01-06 | CT_ITS ---
CLINICAL HISTORY: Left Flank Rib Pain CT abdomen and pelvis without contrast Comparison: None provided Findings: No consolidation or effusion. The liver, gallbladder, spleen, adrenal glands and pancreas are unremarkable. Kidneys, ureters and bladder are normal. Fat containing inguinal hernias are present bilaterally. No bowel obstruction, free air, free fluid, abscess or adenopathy. Scattered diverticulosis without diverticulitis. Normal appendix. No acute osseous finding. Impression: No CT explanation for the left upper quadrant or left-sided rib pain. No acute process. This document has been electronically signed by: Sherman Shah MD on 01/06/2025 06:35:58
[2025-01-06 01:47] VITALS: BP 150/89; PULSE 103; RESP 24; TEMP 36.5; O2SAT 96; BMI 33.9
[2025-01-06 02:11] LABS: MANUAL DIFF FLAG NO
[2025-01-06 02:23] LABS: Hematocrit 50.0 % (42.0-52.0); Hemoglobin 17.7 g/dl (14.0-18.0); Imm Gran Abs Auto 0.05 X10*3/uL (0.00-0.03); Imm Gran Pct Auto 0.5 % (0.0-0.4); Lymphocytes Absolute Auto 3.0 X10*3/uL (1.2-4.9); Mean Corpuscular HGB Conc 35.4 g/dl (31.0-36.0); Mean Corpuscular Hemoglobin 30.4 pg (27.0-33.0); Mean Corpuscular Volume 85.8 fL (80.0-98.0); NRBC Abs Auto 0.000 X10*3/uL (0.0-0.012); NRBC Pct Auto 0.0 /100WBC (0.0-0.2); Platelet Count 271 X10*3/uL (160-400); Red Blood Count 5.83 X10*6/uL (4.60-5.80); White Blood Count 11.0 X10*3/uL (4.8-10.8)
[2025-01-06 02:25] LABS: Alanine Aminotransferase 57 U/L (0-40); Albumin Level 4.9 g/dL (3.5-5.0); Alkaline Phosphatase 125 U/L (39-117); Anion Gap 14 (12-20); Aspartate Amino Transferase 45 U/L (5-37); Blood Urea Nitrogen 8 mg/dL (9-16); Calcium 9.0 mg/dL (8.4-10.2); Carbon Dioxide 26 mmol/L (22-29); Chloride 106 mmol/L (96-108); Creatinine Clr Calc Pharmacy 137.8; Estimated Glomerular Filt Rate > 60; Potassium 3.6 mmol/L (3.3-5.1); Sodium 142 mmol/L (135-145); Total Protein 7.3 g/dL (6.5-8.0)
[2025-01-06 02:56] VITALS: BP 145/86; PULSE 96; RESP 20; TEMP 36.8; O2SAT 96
--- NOTE | 2025-01-06 03:30 | ED_ITS ---
HPI - General Adult General Chief complaint: General Medical Stated complaint: left side pain Time Seen by Provider: 01/06/25 03:22 Source: patient Mode of arrival: ambulatory Limitations: no limitations History of Present Illness ED Provider: Jamel SANFORD HPI narrative: The patient is a 34-year-old male with a history of hypertension, anxiety, asthma, and obesity, presenting to the ED reporting 2 weeks ago he was having a coughing fit as a result of his asthma, at that time felt a twinge in his left ribs. Patient reports pain was manageable, and eventually improved after a few days. The patient reports today he had a recurrent coughing fit and this time felt/heard a snap in the left ribs, patient reports since that time he has been unable to take a deep breath without severe pain, reports pain is reproduced with movement or sitting up straight. The patient denies associated fever/chills, nausea, vomiting, abdominal pain, hematuria, dysuria, recent sick contacts, recent falls, or other recent trauma. Related Data Previous Rx's ?Medication ?Instructions ?Recorded lisinopril 10 mg tablet 10 mg PO DAILY 90 days #90 t abs 05/03/22 Ventolin HFA 90 mcg/actuation 2 puff inhalation Q6H OK N 12/25/22 aerosol inhaler (albuterol sulfate) shortness of breat h or wheezing 30 days #8 grams albuterol sulfate 90 mcg/actuation 2 puff inhalation Q 6H PRN 11/27/24 aerosol inhaler (Ventolin HFA) shortness of breath or wheezing #6.7 grams prednisone 20 mg tablet 40 mg (2 x 20 mg) PO DAILY 5 days 11/27/24 #10 tabs albuterol sulfate 90 mcg/actuation 2 puff inhalation Q 4-6H PRN 01/06/25 aerosol inhaler (Ventolin HFA) shortness of breath or wheezing #8.5 grams morphine 15 mg immediate release 15 mg PO Q4-6H PRN ramses in #14 tabs 01/06/25 tablet Allergies Allergy/AdvReac Type Severity Reaction Status Date / Time doxycycline (DOXYCYCLINE) Allergy Intermediate RASH, hives Verified 01/06/25 01:51 Penicillins (PENICILLINS) Allergy Intermediate Hives Verified 01/06/25 01:51 Review of Systems 2 Review of Systems: Yes all other systems are reviewed and are negative PMFSH Past Medical History Medical History (Updated 01/06/25 @ 07:24 by Jose Juan Mercado MD) HTN (hypertension) Umbilical hernia Lipoma of forehead Sacrococcygeal pilonidal cyst Anxiety Asthma Surgical History (Updated 12/31/22 @ 09:05 by Jenn Rutherford RN) Hx of excision of mass History of foot surgery Family History Family History Mother No problems noted. Father COPD (chronic obstructive pulmonary disease) Social History Social History Housing: Condominium Alcohol intake: current Alcohol intake frequency: a few times a week Alcohol type: beer and hard liquor Patient Tobacco Use Status: Current everyday Tobacco user Tobacco use type: Cigarette Cigarettes Per Day: 10 Smoked in Last 30 Days: Yes e-Cigarette/Vaping Use: Currently Using Second Hand Smoke Exposure: No Use of substances other than those prescribed or required for medical reasons: Yes Substance Use Type: Marijuana Substance Use Frequency: Chronic Longstanding Any prior treatment program specific to substance use: No Advance Directives: No Advance Directives Information Provided: Yes Do you have a plan to hurt others: No Plan service: No Current occupational status: employed Current occupational exposures/hazards: No Cognitive needs: No Hearing needs: No Vision needs: Yes Physical Exam ED Vital Signs: Vital Signs - 24 hr 01/06/25 01:47 01/06/25 02:56 01/06/25 04:00 Temperature 97.7 F 98.3 F Pulse Rate 103 H 96 Respiratory Rate 24 H 20 14 Blood Pressure 150/89 H 145/86 H Pulse Oximetry 96 96 Oxygen Delivery Method Room Air Room Air 01/06/25 06:42 Temperature 98.6 F Pulse Rate 89 Respiratory Rate 18 Blood Pressure 141/74 H Pulse Oximetry 94 Oxygen Delivery Method Room Air BMI result Body Mass Index 33.9 CONSTITUTIONAL: The patient appears in obvious discomfort, but is otherwise non- toxic, well nourished and in no acute distress. Vital signs as documented. HEAD: Atraumatic, normocephalic. EYES: EOMs grossly intact, pupils equal, conjunctiva clear, no exudate. ENT: Nares patent, no discharge. Airway patent, no audible stridor, visible mucosa is pink and moist without noted lesions. NECK: Trachea is midline, no obvious masses or gross abnormalities. CHEST: Symmetric movement, normal appearance. Marked tenderness to palpation of the left mid ribs, no palpable crepitus. LUNGS: LS present and CTAB, no w/r/r. Non-labored work of breathing. CARDIAC: Regular Rhythm, S1/S2 appreciated, no murmurs, rubs or gallops. ABDOMEN: Abdomen soft x4 quadrants, positive tenderness of the left upper quadrant, negative rebound, no palpable masses or organomegaly. : Deferred. EXTREMITIES: Normal tone, moves all extremities spontaneously without reported pain. No obvious acute injury or deformity noted. NEURO: Alert and oriented x3, CN II-XII appear grossly intact. Cerebellar Functioning grossly intact. No obvious sensory or motor deficits. Speech clear and appropriate. PSYCH: normal affect, appropriate eye contact, fluid speech, with appropriate response to questioning. No reported suicidality or homicidality. SKIN: Warm, dry, color appropriate, normal turgor. No rashes noted. Medications Administered Discontinued Medications Generic Name Dose Route Start Last Admin Trade Name Soham PRN Reason Stop Dose Admin Acetaminophen 975 mg 01/06/25 03:37 01/06/25 04:01 Acetaminophen 325 Mg Tablet PO 01/06/25 03:38 975 mg ONCE ONE Administration Ketorolac Tromethamine 15 mg 01/06/25 03:37 01/06/25 04:00 Ketorolac Tromethamine 15 Mg/Ml Vial IVPUSH 01/06/25 03:38 15 mg ONCE ONE Administration Lidocaine 1 patch 01/06/25 03:37 01/06/25 04:01 Lidocaine 4 % Patch Adh..Patch TRANSDERMA 01/06/25 03:38 1 patch ONCE ONE Administration Protocol Morphine Sulfate 4 mg 01/06/25 03:42 01/06/25 04:00 Morphine Sulfate 4 Mg/Ml Cartridge IVPUSH 01/06/25 03:43 4 mg ONCE ONE Administration Protocol Medical Decision Making Medical Decision Making MDM Narrative: 3:39 AM 01/06/2025 (Isabella SANFORD): The patient is a 34-year-old male with a history of hypertension, anxiety, asthma, and obesity, presenting to the ED reporting 2 weeks ago he was having a coughing fit as a result of his asthma, at that time felt a twinge in his left ribs. Patient reports pain was manageable, and eventually improved after a few days. The patient reports today he had a recurrent coughing fit and this time felt/heard a snap in the left ribs, patient reports since that time he has been unable to take a deep breath without severe pain, reports pain is reproduced with movement or sitting up straight. The patient denies associated fever/chills, nausea, vomiting, abdominal pain, hematuria, dysuria, recent sick contacts, recent falls, or other recent trauma. In the ED patient appears quite uncomfortable, pain is reproducible with direct palpation of the left posterolateral and anterolateral mid ribs, immediately inferior to the nipple line. No adventitious lung sounds, patient is nontoxic appearing, no hypoxia. The patient was sent for a chest x-ray which upon this provider's review shows no obvious fracture. On exam the patient's pain is reproducible with pushing and pulling against resistance with the upper extremities, as well as palpation of the ribs and palpation of the left upper quadrant. Given the patient's severity of pain, patient will be treated with pain management, and we will obtain CT chest, abdomen, and pelvis to evaluate for acute rib fracture or other acute pathology. 4:34 AM 01/06/2025 (Isabella SANFORD): This provider was informed by metallurgy laboratory technician of the patient is now reporting a IV contrast allergy. The patient did not report this contrast allergy during initial interview and it was not present on the patient's chart. The allergy will be added to the patient's chart and we will obtain noncontrast imaging. Time: 07:12 Date: 01/06/25 Provider: Jose Juan Mercado MD I assumed care of this patient from my colleague, physician camp assistant Jamel Beltran at 06:00 hours pending the patient's CT scan results. CT scan of the chest, abdomen pelvis did not reveal a clear etiology for the patient's left- sided chest and left upper abdominal pain. The patient does have tenderness palpation of this area. The patient most likely has a rib cage injury from coughing severely. I did discuss this with him. He was treated here in the emergency department with Toradol and morphine IV and he states he had has some improvement in his pain. Patient was advised to take Tylenol and ibuprofen for pain and for pain not relieved by these medications he was prescribed morphine 4 mg every 6 hours as needed. Patient also asked for a refill of his albuterol inhaler and I gave him a prescription for this medication. 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 01/06/25 02:05 01/06/25 02:05 Labs: Lab Results 01/06/25 Range/Units 02:05 WBC 11.0 H (4.8-10.8) X10*3/uL RBC 5.83 H (4.60-5.80) X10*6/uL Hgb 17.7 (14.0-18.0) g/dl Hct 50.0 (42.0-52.0) % MCV 85.8 (80.0-98.0) fL MCH 30.4 (27.0-33.0) pg MCHC 35.4 (31.0-36.0) g/dl RDW 13.5 (11.0-16.0) % Plt Count 271 (160-400) X10*3/uL MPV 10.1 (9.4-12.4) fL Immature Gran % (Auto) 0.5 H (0.0-0.4) % Neut % (Auto) 63.0 (45-73) % Lymph % (Auto) 27.5 (20-40) % [place] % (Auto) 7.1 (2-11) % Eos % (Auto) 1.4 (0-4) % Baso % (Auto) 0.5 (0-2) % Lymph # (Auto) 3.0 (1.2-4.9) X10*3/uL [place] # (Auto) 0.8 (0.1-1.2) X10*3/uL Eos # (Auto) 0.2 (0.0-0.4) X10*3/uL Baso # (Auto) 0.1 (0.0-0.2) X10*3/uL Abs Immat Gran (auto) 0.05 H (0.00-0.03) X10*3/uL Absolute Neuts (auto) 6.9 (2.0-8.3) x10*3/uL Absolute Nucleated RBC 0.000 (0.0-0.012) X10*3/uL Nucleated RBC % (auto) 0.0 (0.0-0.2) /100WBC Sodium 142 (135-145) mmol/L Potassium 3.6 (3.3-5.1) mmol/L Chloride 106 (96-108) mmol/L Carbon Dioxide 26 (22-29) mmol/L Anion Gap 14 (12-20) BUN 8 L (9-16) mg/dL Creatinine 1.00 (0.5-1.4) mg/dL Estim Creat Clear Calc 137.8 Estimated GFR > 60 Random Glucose 88 (60-115) mg/dL Calcium 9.0 (8.4-10.2) mg/dL Total Bilirubin 0.7 (0.0-1.0) mg/dL AST 45 H (5-37) U/L ALT 57 H (0-40) U/L Alkaline Phosphatase 125 H (39-117) U/L Total Protein 7.3 (6.5-8.0) g/dL Albumin 4.9 (3.5-5.0) g/dL Radiology Impression Discussion of test interpretation with radiology: I have reviewed the radiologist's reading. Radiologist Impression: CT chest without contrast Comparison: None provided Findings: The heart is normal size. The visualized thyroid and mediastinum are unremarkable. Mild thickening of the lower esophagus. No rib fracture or alternate acute osseous abnormality. The visualized upper abdomen is unremarkable. Impression: No definite acute process. Mild thickening of the esophagus is nonspecific but can be seen with reflux esophagitis. This document has been electronically signed by: Sherman Shah MD on 01/06/2025 06:28:52 CT abdomen and pelvis without contrast Comparison: None provided Findings: No consolidation or effusion. The liver, gallbladder, spleen, adrenal glands and pancreas are unremarkable. Kidneys, ureters and bladder are normal. Fat containing inguinal hernias are present bilaterally. No bowel obstruction, free air, free fluid, abscess or adenopathy. Scattered diverticulosis without diverticulitis. Normal appendix. No acute osseous finding. Impression: No CT explanation for the left upper quadrant or left-sided rib pain. No acute process. This document has been electronically signed by: Sherman Shah MD on 01/06/2025 06:35:58 Discharge Plan Discharge Clinical Impression: Rib pain on left side, Asthma Patient Disposition: Home, Self-Care Instructions: Rib Contusion (ED) Additional Instructions: The CT scan of your chest abdomen pelvis did not reveal any significant abnormalities which is reassuring. There were no displaced rib fractures, popped lungs or other abnormalities noted by the radiologist. Your left-sided chest pain is due to either muscle injury of the ribs or a bruise of the rib from you coughing very hard. Take ibuprofen 200 mg pills, 2 pills every 6 hours as needed for pain. Take Tylenol (acetaminophen) 2 pills every 6 hours as needed for pain. For pain not relieved by ibuprofen or Tylenol take morphine 15 mg pills, 1 pill every 6 hours as needed for pain. This medication will make you sleepy, do not drive or work while taking this medication. Morphine is a narcotic medication and can be addicting. If you are concerned about addiction you can ask the pharmacist for less pills or do not get this prescription filled. Use the albuterol inhaler with the spacer, 2 puffs every 4-6 hours as needed for shortness of breath and wheezing. Follow-up with your doctor in 2 days. Please return to the emergency department if your symptoms get worse or if you develop any symptoms that are concerning to you. Please see the return to work note Prescriptions: New morphine 15 mg tablet 15 mg PO Q4-6H PRN (Reason: pain) Qty: 14 0RF Rx Instructions: Partial Fill upon patient request. albuterol sulfate [Ventolin HFA] 90 mcg/actuation HFA aerosol inhaler 2 puff inhalation Q4-6H PRN (Reason: shortness of breath or wheezing) Qty: 8.5 0RF No Action albuterol sulfate [Ventolin HFA] 90 mcg/actuation HFA aerosol inhaler 2 puff inhalation Q6H PRN (Reason: shortness of breath or wheezing) 30 Days Qty: 8 2RF prednisone 20 mg tablet 40 mg PO DAILY 5 Days Qty: 10 0RF albuterol sulfate [Ventolin HFA] 90 mcg/actuation HFA aerosol inhaler 2 puff inhalation Q6H PRN (Reason: shortness of breath or wheezing) Qty: 6.7 0RF lisinopril 10 mg tablet 10 mg PO DAILY 90 Days Qty: 90 1RF Stand Alone Forms: Work/School Release Print Language: Hungarian
[2025-01-06 04:00] VITALS: RESP 14
[2025-01-06] MEDS: Lidocaine 4 % Patch ADH..PATCH 1 PATCH TRANSDERMA (04:01)
[2025-01-06 06:42] VITALS: BP 141/74; PULSE 89; RESP 18; TEMP 37; O2SAT 94
[2025-01-06 07:40] VITALS: BP 141/74; PULSE 89; RESP 18; TEMP 37; O2SAT 94
== END 2025-01-06 07:40 | disposition home or self-care (01) ==
PROVIDERS: Emergency Medicine; Emergency Provider Emergency Medicine Emergency Medical Services; PCP Internal Medicine
DX: R07.89 Other chest pain (principal); J45.909 Unspecified asthma, uncomplicated; R07.1 Chest pain on breathing; R05.9 Cough, unspecified; R10.A3 Flank pain, bilateral; F17.210 Nicotine dependence, cigarettes, uncomplicated
CPT/HCPCS: 36415; 71045; 71250; 74176; 80053; 85025; 96374; 96375; 99284; J1885; J2270

== ENCOUNTER → 2025-01-06 03:30 | Outpatient (BNV) | payer SELFPAY | PROVIDERS: Emergency Provider Emergency Medicine; PCP Internal Medicine; Visit Provider Radiology Vascular & Interventional Radiology | DX: R10.A2 Flank pain, left side (principal); R07.89 Other chest pain; R05.9 Cough, unspecified | CPT/HCPCS: 71045; 71250; 74176 ==